=== PATIENT | female | born 1995 | race Caucasian/White ===

== ENCOUNTER 2021-04-20 15:24 | Emergency (ER) | payer MEDICAID ==
[~2021-04-20] VITALS: Ht 175.3 cm; Wt 102.1 kg
[2021-04-20 15:30] VITALS: BP_SYST 126
[2021-04-20] MEDS ORDERED: DIAZEPAM 10 MG/2 ML DISP.SYRIN IM ONE (17:15)
[2021-04-20] MEDS ORDERED: KETOROLAC TROMETHAMINE 60 MG/2 ML VIAL IM ONE (17:15)
[2021-04-20] MEDS ORDERED: CYCLOBENZAPRINE HCL 10 MG TABLET (FLEXERIL) PO ONE (17:45)
[2021-04-20] MEDS: CYCLOBENZAPRINE HCL 10 MG TABLET (FLEXERIL) PO ONE ×2 (18:01→19:10)
[2021-04-20] MEDS ORDERED: NAPR-1172 PO (18:50)
[2021-04-20] MEDS ORDERED: CYCL-10 PO (18:50)
[2021-04-20 18:56] VITALS: BP_SYST 126
== END 2021-04-20 18:54 | disposition home or self-care (01) ==
LOC: SED 15:24
DX: M54.5 Low back pain (principal); Z79.899 Other long term (current) drug therapy
CPT/HCPCS: 81025; 96372; 99283; J1885